=== PATIENT | male | born 1950 | race Caucasian/White ===

== ENCOUNTER 2017-08-26 10:26 | Emergency (ER) | payer OTHER ==
[~2017-08-26] VITALS: Ht 177.8 cm; Wt 90.7 kg
[2017-08-26] MEDS ORDERED: FLOMAX0.4 MG PO (10:36)
[2017-08-26] MEDS ORDERED: LISINOPRIL2.5 M1 PO (10:36)
[2017-08-26] MEDS ORDERED: ASPIR 8181 MG PO (10:36)
[2017-08-26] MEDS ORDERED: CRESTOR10 MG PO (10:36)
[2017-08-26] MEDS ORDERED: NORVASC2.5 MG PO (10:36)
[2017-08-26 10:44] LABS: ABSOLUTE EOSINOPHILS 0.1 thou/uL (0.0-0.7); ABSOLUTE LYMPHOCYTES 1.7 thou/uL (0.8-5.3); ABSOLUTE MONOCYTES 0.7 thou/uL (0.0-1.2); ABSOLUTE NEUTROPHILS 3.5 thou/uL (1.6-8.1); BASOPHILS 0.5 %; EOSINOPHILS 1.1 %; HEMATOCRIT 44.4 % (42.0-52.0); LYMPHOCYTES 28.9 %; MCH 31.6 pg (26.0-34.0); MCHC 33.9 g/dL (28.0-37.0); MCV 93.4 fL (80.0-100.0); MONOCYTES 11.5 %; NUCLEATED RBCS 0 /100WBC; PLATELET COUNT* 247 thou/uL (150-400); RBC 4.75 mil/uL (4.50-6.00); RDW-CV 13.6 % (10.5-14.5); WBC 6.1 thou/uL (4.0-11.0)
[2017-08-26 10:52] LABS: ANION GAP 6 mmol/L (7-16); BUN 15 mg/dL (7-18); CALCIUM 8.8 mg/dL (8.5-10.1); CHLORIDE 105 mmol/L (98-107); CO2 29 mmol/L (21-32); CREATININE 1.2 mg/dL (0.6-1.3); GLUCOSE 116 mg/dL (70-99); POTASSIUM 3.9 mmol/L (3.5-5.1); SODIUM 140 mmol/L (136-145)
[2017-08-26 10:58] LABS: APTT 26.4 Seconds (25.0-31.3); PROTIME 10.1 Seconds (9.20-11.50)
[2017-08-26 11:10] LABS: ALKALINE PHOSPHATASE 69 U/L (46-116); CK-MB MASS 1.4 ng/mL (<0.5-3.6); LIPASE 131 U/L (73-393); MAGNESIUM 2.1 mg/dL (1.8-2.4); NT-PRO BRAIN NAT PEPTIDE 32 pg/mL (<300); SGOT 23 U/L (15-37); SGPT 40 U/L (30-65); TOTAL BILIRUBIN 0.6 mg/dL (<0.1-1.0); TOTAL PROTEIN 7.6 g/dL (6.4-8.2); TROPONIN-I LEVEL <0.06 ng/mL (<0.06)
[2017-08-26 11:17] VITALS: BP 153/69
--- NOTE | 2017-08-26 15:48 | EKG ---
[place] [address] ELECTROCARDIOGRAM REPORT Name: VANESAMYRIAMDEVYN Sherman Room: [facility]#: [id number] Admission: 08/26/17 Attend Phys: Discharge: 08/26/17 Date of : 46 Report #: [id number] THIS REPORT FOR: //name// [facility] ED Test Date: 2017-08-26 Test Time: 10:30:19 Pat Name: DEVYN JACOBS Department: Room: Gender: M Windows Desktop Support: KIMMIE : 1950 Requested By: Mack Rocha Order Number: [id number] MD: Alan Beltre Measurements Intervals Staples Rate: 87 P: 60 LA: 166 QRS: 9 QRSD: 144 T: 3 QT: 400 QTc: 482 Interpretive Statements Sinus rhythm Probable left atrial enlargement Right bundle branch block Baseline wander in lead(s) V4 No previous ECG available for comparison Electronically Signed On 08-26-2017 15:48:29 CDT by Alan Beltre [email or web address] <ELECTRONICALLY SIGNED> By: Alan Beltre MD, [facility] 08/26/17 1548 1030 1030 Alan Beltre MD, FACC /EPI
== END 2017-08-26 11:17 | disposition home or self-care (01) ==
LOC: M.ERS 10:26
PROVIDERS: Family Medicine
DX: R07.9 Chest pain, unspecified (principal)